=== PATIENT | female | born 2000 | race Caucasian/White ===

== ENCOUNTER 2023-03-20 20:15 | Emergency (ER) | payer OTHER ==
[~2023-03-20] VITALS: Ht 175.3 cm; Wt 71.7 kg
[2023-03-20] MEDS ORDERED: BACTRIM DS TAB1 EACH PO (21:39)
[2023-03-20 21:56] VITALS: BP 133/84
== END 2023-03-20 21:57 | disposition home or self-care (01) ==
LOC: ED 20:15
DX: L02.414 Cutaneous abscess of left upper limb (principal); Z23 Encounter for immunization
CPT/HCPCS: 10060; 90471; 90715; 99283-25; A9270